=== PATIENT | female | born 1930 | race Caucasian/White ===

== ENCOUNTER 2019-05-23 13:17 | Emergency (ER) | payer MEDICARE ==
[2019-05-23 13:36] VITALS: TEMP 97.5
--- NOTE | 2019-05-23 13:50 | ED ---
General Adult HPI - General Chief complaint: Upper Respiratory Infection Stated complaint: Cough Time Seen by Provider: 05/23/19 13:43 Source: patient Mode of arrival: ambulatory Limitations: physical limitation - History of Present Illness Initial comments: Dictation was produced using [employer] dictation software. please excuse any grammatical, word or spelling errors. Chief Complaint: 89 yo female presents with flulike symptoms for one week. History of Present Illness: 89-year-old female presents today with cough and nasal congestion. Patient has been having cold-like symptoms for the last one week. Patient presents today with who has had the cold initially. Patient states she's been having cough minimally productive sputum. Patient denies any pain. She has been having nasal congestion. She is brought to the emergency department by because she's had history of pneumonia in the past. The ROS documented in this emergency department record has been reviewed and confirmed by me. Those systems with pertinent positive or negative responses have been documented in the HPI. All other systems are other negative and/or noncontributory. PHYSICAL EXAM: General Impression: Alert and oriented x3, not in acute distress HEENT: Normocephalic atraumatic, extra-ocular movements intact, pupils equal and reactive to light bilaterally, mucous membranes moist. Cardiovascular: Heart regular rate and rhythm, S1&S2 audible, no murmurs, rubs or gallops Chest: Lungs clear to auscultation bilaterally, no rhonchi, no wheeze, no rales Abdomen: Bowel sounds present, abdomen soft, non-tender, non-distended, no orga nomegaly Musculoskeletal: Pulses present and equal in all extremities, no peripheral edema Motor: no focal deficits noted Neurological: CN II-XII grossly intact, no focal motor or sensory deficits noted Skin: Intact with no visualized rashes Psych: Normal affect and mood ED course: 89-year-old female presents with flulike symptoms for one week. On arrival are within acceptable limits. Physical examination is grossly benign. Patient's well-appearing. Laboratory evaluation obtained. CBC unremarkable. Metabolic panel is acceptable. Influenza is negative. Chest x-ray shows COPD with mild multifocal air space and interstitial infiltrates correlating for possible atypical pneumonia. The emergency department for several hours. Patient reevaluated at bedside. Patient states she feels well. She wants to be discharge. She is given the option to be admitted for observation however she rather be discharged and take medications at home. Patient given Rocephin IV. Patient prescription for Zithromax pack that was sent to her pharmacy. Return premises discussed. Patient understandable agreeable with plan. All questions answered. - Related Data Previous Rx's Medication Instructions Recorded Azithromycin [Zithromax Z-pack] 0 mg PO DIRECTED #6 tab 05/23/19 Allergies Allergy/AdvReac Type Severity Reaction Status Date / Time No Known Allergies Allergy Verified 05/23/19 13:35 Review of Systems ROS Statement: Those systems with pertinent positive or pertinent negative responses have been documented in the HPI. ROS Other: All systems not noted in ROS Statement are negative. Past Medical History Past Medical History: Diabetes Mellitus, Hyperlipidemia, Hypertension, Pneumonia History of Any Multi-Drug Resistant Organisms: None Reported Past Surgical History: No Surgical Hx Reported Past Psychological History: No Psychological Hx Reported Smoking Status: Never smoker Past Alcohol Use History: None Reported Past Drug Use History: None Reported General Exam Limitations: physical limitation Course Vital Signs 05/23/19 05/23/19 13:30 16:07 Temperature 97.5 F L Pulse Rate 79 78 Respiratory 22 19 Rate Blood Pressure 94/59 106/58 O2 Sat by Pulse 94 L 93 L Oximetry Medical Decision Making - Lab Data Result diagrams: 05/23/19 14:26 05/23/19 14:26 Lab Results 05/23/19 05/23/19 05/23/19 Range/Units 13:36 14:26 14:26 WBC 4.3 (3.8-10.6) k/uL RBC 4.73 (3.80-5.40) m/uL Hgb 12.9 (11.4-16.0) gm/dL Hct 38.7 (34.0-46.0) % MCV 81.7 (80.0-100.0) fL MCH 27.3 (25.0-35.0) pg MCHC 33.4 (31.0-37.0) g/dL RDW 13.1 (11.5-15.5) % Plt Count 108 L (150-450) k/uL Neutrophils % (Manual) 38 % Band Neutrophils % 1 % Lymphocytes % (Manual) 52 % Monocytes % (Manual) 8 % Eosinophils % (Manual) 1 % Neutrophils # (Manual) 1.60 (1.3-7.7) k/uL Lymphocytes # (Manual) 2.24 (1.0-4.8) k/uL Monocytes # (Manual) 0.34 (0-1.0) k/uL Eosinophils # (Manual) 0.04 (0-0.7) k/uL Nucleated RBCs 0 (0-0) /100 WBC Manual Slide Review Performed Poikilocytosis (manual Present Sodium 135 L (137-145) mmol/L Potassium 4.2 (3.5-5.1) mmol/L Chloride 97 L (98-107) mmol/L Carbon Dioxide 29 (22-30) mmol/L Anion Gap 9 mmol/L BUN 25 H (7-17) mg/dL Creatinine 0.66 (0.52-1.04) mg/dL Est GFR (CKD-EPI)AfAm >90 (>60 ml/min/1.73 sqM) Est GFR (CKD-EPI)NonAf 79 (>60 ml/min/1.73 sqM) Glucose 93 (74-99) mg/dL Calcium 9.7 (8.4-10.2) mg/dL Magnesium 2.1 (1.6-2.3) mg/dL Influenza Type A RNA Not Detected (Not Detectd) Influenza Type B (PCR) Not Detected (Not Detectd) Disposition Clinical Impression: Pneumonia Disposition: HOME SELF-CARE Condition: Good Instructions (If sedation given, give patient instructions): Upper Respiratory Infection (ED) Additional Instructions: rx sent to pharmacy Prescriptions: Azithromycin [Zithromax Z-pack] 0 mg PO DIRECTED #6 tab Is patient prescribed a controlled substance at d/c from ED?: No Referrals: Isela Souza MD [Primary Care Provider] - 1-2 days Time of Disposition: 16:22
[2019-05-23 14:41] LABS: HCT 38.7 % (34.0-46.0); HGB 12.9 gm/dL (11.4-16.0); MCH 27.3 pg (25.0-35.0); MCHC 33.4 g/dL (31.0-37.0); MCV 81.7 fL (80.0-100.0); Mean Platelet Volume 9.9; Platelet Count 108 k/uL (150-450); RBC 4.73 m/uL (3.80-5.40); RDW 13.1 % (11.5-15.5); WBC 4.3 k/uL (3.8-10.6)
[2019-05-23 14:46] LABS: African American GFR (CKD) >90 (>60 ml/min/1.73 sqM); Anion Gap 9 mmol/L; Blood Urea Nitrogen 25 mg/dL (7-17); Calcium 9.7 mg/dL (8.4-10.2); Carbon Dioxide 29 mmol/L (22-30); Chloride 97 mmol/L (98-107); Glucose 93 mg/dL (74-99); Magnesium 2.1 mg/dL (1.6-2.3); Non-African American GFR(CKD) 79 (>60 ml/min/1.73 sqM); Potassium 4.2 mmol/L (3.5-5.1); Sodium 135 mmol/L (137-145)
--- NOTE | 2019-05-23 15:12 | XR ---
EXAMINATION TYPE: XR chest 2V DATE OF EXAM: 05/23/2019 COMPARISON: None HISTORY: 89-year-old female with cough and congestion TECHNIQUE: PA and lateral views FINDINGS: Heart normal size. Mild elongation thoracic aorta with atherosclerotic calcifications. Hyperinflation . Multifocal patchy airspace and interstitial infiltrates. Possible trace effusions. IMPRESSION: COPD with multifocal airspace and interstitial infiltrates. Correlate for multifocal pneumonia. Atypi adilia infections are also possible.
[2019-05-23 15:29] LABS: Band Neutrophils % 1 %; Eosinophils # (M) 0.04 k/uL (0-0.7); Lymphocytes # (M) 2.24 k/uL (1.0-4.8); Monocytes # (M) 0.34 k/uL (0-1.0); Neutrophils % (M) 38 %; Nucleated Red Blood Cells 0 /100 WBC (0-0); Poikilocytosis (M) Present; Total Cells Counted 100
[2019-05-23] MEDS ORDERED: cefTRIAXone IN SWFI 1,000 MG/10 ML SYRINGE IVP STA (15:59)
[2019-05-23 16:07] VITALS: BP 106/58; PULSE 78; RESP 19
== END 2019-05-23 16:32 | disposition home or self-care (01) ==
LOC: EC 13:17
DX: J18.9 Pneumonia, unspecified organism (principal); J44.0 Chronic obstructive pulmonary disease with (acute) lower respiratory infection; E11.9 Type 2 diabetes mellitus without complications; I10 Essential (primary) hypertension
CPT/HCPCS: 36415; 80048; 83735; 85025; 87502; 71046; 99283; 96374; J0696

== ENCOUNTER 2020-02-11 13:36 | Emergency (ER) | payer MEDICARE ==
[2020-02-11 13:43] VITALS: TEMP 97.8
--- NOTE | 2020-02-11 13:50 | ED ---
Fall HPI - General Chief Complaint: Fall Stated Complaint: Fall Time Seen by Provider: 02/11/20 13:49 Source: patient, family Mode of arrival: wheelchair - History of Present Illness Initial Comments: Patient is an 89-year-old female presenting to emergency department with a chief complaint of a fall. Patient states she was attempting to get her jacket out a closet when she lost her balance and fell from standing position and hitting her head on the way down. Patient states she doesn't recall the exact mechanism of the fall. States she believes she fell forward and has some pain in the right supraorbital region. Patient states this occurred about half hour prior to ar rival. States there was no loss of consciousness. Denies any blood thinners. Denies one-sided weakness or paresthesias. Denies any chest pain, shortness of breath, visual changes. Denies any alleviating or aggravating factors. States tetanus is up-to-date. - Related Data Previous Rx's Medication Instructions Recorded Azithromycin [Zithromax Z-pack] 0 mg PO DIRECTED #6 tab 05/23/19 Allergies Allergy/AdvReac Type Severity Reaction Status Date / Time No Known Allergies Allergy Verified 02/11/20 13:43 Review of Systems ROS Statement: Those systems with pertinent positive or pertinent negative responses have been documented in the HPI. ROS Other: All systems not noted in ROS Statement are negative. Past Medical History Past Medical History: Diabetes Mellitus, Hyperlipidemia, Hypertension, Pneumonia History of Any Multi-Drug Resistant Organisms: None Reported Past Surgical History: No Surgical Hx Reported Past Psychological History: No Psychological Hx Reported Smoking Status: Never smoker Past Alcohol Use History: None Reported Past Drug Use History: None Reported General Exam Limitations: no limitations General appearance: alert, in no apparent distress Head exam: Present: atraumatic, normocephalic. Absent: normal inspection (Small abrasion and a scalp hematoma noted in the parietal region. No palpable bony deformities.), other (Negative Sparrow sign, raccoon eyes, hemotympanum.) Eye exam: Present: normal appearance (Small abrasion in the right supraorbital region. No entrapment.), PERRL, EOMI, periorbital tenderness (Mild right). Absent: scleral icterus, conjunctival injection, nystagmus, periorbital swelling Pupils: Present: normal accommodation ENT exam: Present: normal exam, normal oropharynx, mucous membranes moist Neck exam: Present: normal inspection, full ROM. Absent: tenderness, meningismus, lymphadenopathy Respiratory exam: Present: normal lung sounds bilaterally. Absent: respiratory distress, wheezes, rales Cardiovascular Exam: Present: regular rate, normal rhythm, normal heart sounds. Absent: bradycardia, tachycardia GI/Abdominal exam: Present: soft. Absent: distended, tenderness, guarding Extremities exam: Present: normal inspection, full ROM, normal capillary refill, other (+2 ulnar and radial pulses bilaterally. +2 dorsalis pedis posterior tibials bilaterally. Steam Pan Sponger strength equal bilaterally. Biceps flexion strength 5/5 bilateral upper extremity.). Absent: tenderness Back exam: Present: normal inspection, full ROM. Absent: tenderness, CVA tenderness (R), CVA tenderness (L) Neurological exam: Present: alert, oriented X3 Psychiatric exam: Present: normal affect, normal mood Skin exam: Present: warm, dry, intact, normal color Course Vital Signs 02/11/20 13:40 Temperature 97.8 F Pulse Rate 80 Respiratory 18 Rate Blood Pressure 120/69 O2 Sat by Pulse 99 Oximetry Medical Decision Making - Medical Decision Making Patient is an 89-year-old female presenting to emergency Department with a chief complaint of a fall. The patient has a small hematoma in the parietal region along with an abrasion in the supraorbital region. Rest of physical examination is unremarkable. CBC is unremarkable. CMP reveals elevated blood glucose levels of 225. Slight elevation and BUN which I suspect is secondary to dehydration. Patient was started on IV fluids. Brain and cervical spine CT reveals no acute fractures, disc locations, intracranial hemorrhage, midline shift or any space-occupying lesions. Some cervical spondylitic changes noted. On reevaluation, patient appears well and states she would like to go home. Strict return parameters were thoroughly discussed patient was understanding and agreeable. Some was also present in the room. Case discussed with physician. - Lab Data Result diagrams: 02/11/20 14:30 02/11/20 14:30 Lab Results 02/11/20 02/11/20 Range/Units 14:30 14:30 WBC 6.5 (3.8-10.6) k/uL RBC 4.56 (3.80-5.40) m/uL Hgb 11.5 (11.4-16.0) gm/dL Hct 37.5 (34.0-46.0) % MCV 82.3 (80.0-100.0) fL MCH 25.3 (25.0-35.0) pg MCHC 30.7 L (31.0-37.0) g/dL RDW 14.0 (11.5-15.5) % Plt Count 179 (150-450) k/uL Neutrophils % 54 % Lymphocytes % 34 % Monocytes % 8 % Eosinophils % 1 % Basophils % 1 % Neutrophils # 3.5 (1.3-7.7) k/uL Lymphocytes # 2.2 (1.0-4.8) k/uL Monocytes # 0.5 (0-1.0) k/uL Eosinophils # 0.1 (0-0.7) k/uL Basophils # 0.0 (0-0.2) k/uL Hypochromasia Moderate Sodium 135 L (137-145) mmol/L Potassium 4.4 (3.5-5.1) mmol/L Chloride 100 (98-107) mmol/L Carbon Dioxide 28 (22-30) mmol/L Anion Gap 7 mmol/L BUN 28 H (7-17) mg/dL Creatinine 0.59 (0.52-1.04) mg/dL Est GFR (CKD-EPI)AfAm >90 (>60 ml/min/1.73 sqM) Est GFR (CKD-EPI)NonAf 82 (>60 ml/min/1.73 sqM) Glucose 224 H (74-99) mg/dL Calcium 9.6 (8.4-10.2) mg/dL Total Bilirubin 0.3 (0.2-1.3) mg/dL AST 24 (14-36) U/L ALT 14 (4-34) U/L Alkaline Phosphatase 77 (38-126) U/L Total Protein 6.3 (6.3-8.2) g/dL Albumin 3.6 (3.5-5.0) g/dL Disposition Clinical Impression: Fall, Scalp contusion, Abrasion Disposition: HOME SELF-CARE Condition: Stable Instructions (If sedation given, give patient instructions): Fall Prevention (ED) Additional Instructions: Follow up with the primary care physician. Return to emergency department if symptoms worsen. Is patient prescribed a controlled substance at d/c from ED?: No Referrals: Isela Souza MD [Primary Care Provider] - 1-2 days Time of Disposition: 15:32
[2020-02-11] MEDS ORDERED: SODIUM CHLORIDE 0.9% 500 ML 500 ML IV ONE (13:59)
[2020-02-11 14:40] LABS: Basophils % (A) 1 %; Eosinophils # (A) 0.1 k/uL (0-0.7); Eosinophils % (A) 1 %; HCT 37.5 % (34.0-46.0); HGB 11.5 gm/dL (11.4-16.0); Hypochromasia Moderate; Lymphocytes # (A) 2.2 k/uL (1.0-4.8); Lymphocytes % (A) 34 %; MCH 25.3 pg (25.0-35.0); MCHC 30.7 g/dL (31.0-37.0); MCV 82.3 fL (80.0-100.0); Mean Platelet Volume 8.7; Monocytes # (A) 0.5 k/uL (0-1.0); Monocytes % (A) 8 %; Neutrophils # (A) 3.5 k/uL (1.3-7.7); Neutrophils % (A) 54 %; Platelet Count 179 k/uL (150-450); RBC 4.56 m/uL (3.80-5.40); WBC 6.5 k/uL (3.8-10.6)
--- NOTE | 2020-02-11 15:11 | CT ---
EXAMINATION TYPE: CT brain angélica wo con DATE OF EXAM: 02/11/2020 COMPARISON: None HISTORY: 89-year-old female with pain after fall and blow to right supraorbital region CT DLP: 1183.3 mGycm Automated exposure control for dose reduction was used. Technique: Examination of the head was done in axial plane without intravenous contrast. Coronal and sagittal reconstructions performed. CT of the cervical spine was obtained in axial plane without intravenous injection of contrast mater ial. Coronal and sagittal reformatted images were obtained from the axial views for evaluation of f ractures, spinal alignment and canal. FINDINGS: Head: There is no evidence of acute intracranial hemorrhage, acute ischemic changes, mass, mass-effect, or extra-axial fluid collection. There is no effacement of cerebral sulci or basal subarachnoid cister ns. There is no midline shift. Rowell-white matter distinction is preserved. Lateral right supraorbital soft tissue swelling. No underlying calvarial fracture. Some degenerative changes of the TMJs. Globes appear symmetrical. Visualized paranasal sinuses and mastoid air cells ap pear clear. There is moderate generalized cerebral atrophy including central cerebral atrophy and mild ventriculo megaly. Neeraj's ratio is calculated at 0.32. Moderate white matter hypodensities in both cerebral hemispheres. Cervical spine: No craniocervical junction abnormality, predental space widening, or prevertebral soft tissue swellin g. Degenerative changes at the C1 dens articulation. Moderately advanced disc/endplate degenerative change mid and lower cervical spine. Advanced facet and uncovertebral joint arthropathy throughout. Degenerative grade 1 anterolisthesis C5-C6, C7-T1, and T1-T2. No acute fracture seen of the cervical spine. Moderate to severe left neural foraminal stenosis C3-C4. Biapical pleural-parenchymal scarring. Sagittal and coronal reformatted images confirm above findings. COMBINED IMPRESSION: 1. Lateral right supraorbital soft tissue contusion. No underlying calvarial fracture. 2. Moderate generalized atrophy and confluent changes of chronic small vessel ischemic disease. No ac darius intracranial abnormality seen. 3. No acute fracture of the cervical spine. Degenerative grade 1 anterolisthesis C5-C6, C7-T1, and T1 -T2. 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
[2020-02-11 15:17] LABS: ALT 14 U/L (4-34); AST 24 U/L (14-36); African American GFR (CKD) >90 (>60 ml/min/1.73 sqM); Albumin 3.6 g/dL (3.5-5.0); Alkaline Phosphatase 77 U/L (38-126); Anion Gap 7 mmol/L; Blood Urea Nitrogen 28 mg/dL (7-17); Calcium 9.6 mg/dL (8.4-10.2); Carbon Dioxide 28 mmol/L (22-30); Chloride 100 mmol/L (98-107); Glucose 224 mg/dL (74-99); Non-African American GFR(CKD) 82 (>60 ml/min/1.73 sqM); Potassium 4.4 mmol/L (3.5-5.1); Sodium 135 mmol/L (137-145); Total Bilirubin 0.3 mg/dL (0.2-1.3); Total Protein 6.3 g/dL (6.3-8.2)
[2020-02-11 15:40] VITALS: BP 118/64; PULSE 97; RESP 16
== END 2020-02-11 15:46 | disposition home or self-care (01) ==
LOC: EC 13:36 → SUPCPDRO 13:36 → EC 15:46
DX: S00.03XA Contusion of scalp, initial encounter (principal); M47.812 Spondylosis without myelopathy or radiculopathy, cervical region; R73.09 Other abnormal glucose; R79.89 Other specified abnormal findings of blood chemistry; W01.198A Fall on same level from slipping, tripping and stumbling with subsequent striking against other object, initial encounter; Y92.009 Unspecified place in unspecified non-institutional (private) residence as the place of occurrence of the external cause
CPT/HCPCS: 36415; 70450; 72125; 80053; 85025; 96360; 99284